=== PATIENT | male | born 1990 | race Caucasian/White ===

== ENCOUNTER 2023-05-11 08:35 | Emergency (ER) | payer OTHER, MEDICAID, SELFPAY ==
[2023-05-11 08:36] VITALS: BP 112/83; PULSE 60; RESP 14; TEMP 36.4; O2SAT 100
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
[2023-05-11] MEDS: Ketorolac 15 MG/ML Vial IM (09:57)
[2023-05-11] MEDS: Lidocaine 5% Patch 1 PATCH TOPICAL (09:57)
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
[2023-05-11 11:20] VITALS: BP 114/76; PULSE 68; RESP 14
== END 2023-05-11 11:23 | disposition home or self-care (01) ==
PROVIDERS: Emergency Provider Student in an Organized Health Care Education/Training Program; Visit Provider Student in an Organized Health Care Education/Training Program
DX: S29.019A Strain of muscle and tendon of unspecified wall of thorax, initial encounter (principal); V49.40XA Driver injured in collision with unspecified motor vehicles in traffic accident, initial encounter
CPT/HCPCS: 72072; 96372; 99282